=== PATIENT | female | born 1965 ===

== ENCOUNTER 2019-10-03 11:44 | Emergency (ER) | payer SELFPAY ==
[~2019-10-03] VITALS: Ht 165.1 cm; Wt 8.2 kg
[2019-10-03 11:46] VITALS: BP 155/85
== END 2019-10-03 12:08 | disposition left against medical advice (07) ==
LOC: ER 11:45
DX: R05 Cough (principal); R09.81 Nasal congestion; Z53.21 Procedure and treatment not carried out due to patient leaving prior to being seen by health care provider